=== PATIENT | female | born 1960 ===

== ENCOUNTER 2017-12-06 09:08 | Emergency (ER) | payer OTHER ==
[~2017-12-06] VITALS: Ht 167.6 cm; Wt 78.0 kg
[2017-12-06] MEDS ORDERED: ZANTAC300 MG PO (09:22)
[2017-12-06] MEDS ORDERED: ZYRTEC10 M3 PO (09:22)
== END 2017-12-06 13:45 | disposition home or self-care (01) ==
LOC: ER 09:08
DX: B08.8 Other specified viral infections characterized by skin and mucous membrane lesions (principal); B34.9 Viral infection, unspecified; R53.1 Weakness